=== PATIENT | male | born 1950 | race Caucasian/White ===

== ENCOUNTER → 2020-05-16 07:47 | Outpatient (CLI) | payer MEDICARE, OTHER, SELFPAY ==
[2020-04-27 10:36] VITALS: BMI 25.7
--- NOTE | 2020-05-16 07:47 | ECHOCS_ITS ---
Reason For Study: ARRHYTHMIA Procedure This was a 2D Doppler, Color Flow transthoracic echocardiogram. The study was technically difficult. Contrast injection was performed. Exam performed in department. Left Ventricle Normal LV size. Left ventricular systolic function is normal. The estimated ejection fraction is 60 %. No evidence for diastolic dysfunction. No regional wall motion abnormalities noted. Right Ventricle Normal RV size. Normal systolic function. Atria The left atrium is mildly enlarged. Normal right atrium. No doppler evidence for ASD. Mitral Valve There is no mitral annular calcification. Mild focal mitral valve calcification of the anterior leaflet. Trivial mitral valve insufficiency. Tricuspid Valve Normal tricuspid valve. Trivial tricuspid valve insufficiency. Right ventricular systolic pressure estimated to be 23 mmHg. Aortic Valve Trisinus/trileaflet aortic valve. Normal aortic valve. Mild (1+) aortic valve insufficiency. Pulmonic Valve The pulmonic valve is not well visualized. Great Vessels Normal sized aortic root. Pericardium/Pleural No pericardial effusion. Medication 22 gauge I.V. with prn adaptor inserted into right arm. Diluted definity 4.0ml given slow IV push to enhance endocardial definition. MMode/2D Measurements & Calculations LVIDd: 4.0 cm IVSd: 1.1 cm Ao root diam: 3.3 cm LVIDs: 2.7 cm LVPWd: 1.0 cm FS: 31.3 % LAV(MOD-bp): 53.1 ml LVAd ap4: 31.4 cm2 SV(MOD-sp4): 65.9 ml LAV(MOD-bp) Indexed: 25.7 ml/m2 EDV(MOD-sp4): 102.6 ml LAV(MOD-sp2): 43.2 ml EDV(sp4-el): 103.9 ml LAV(MOD-sp4): 56.9 ml LVAs ap4: 17.0 cm2 ESV(MOD-sp4): 36.7 ml ESV(sp4-el): 36.8 ml EF(MOD-sp4): 64.2 % EF(sp4-el): 64.6 % SV(sp4-el): 67.1 ml LA A4 area: 20.2 cm2 RA A4 area: 16.9 cm2 Time Measurements MV dec time: 0.45 sec Doppler Measurements & Calculations MV E max glenn: 54.2 cm/sec Lat Peak E' Glenn: 10.4 cm/sec Med Peak E' Glenn: 9.8 cm/sec MV A max glenn: 45.6 cm/sec E/E' lat: 5.2 E/E' med: 5.5 MV E/A: 1.2 Ao V2 max: 133.2 cm/sec AI max glenn: 374.3 cm/sec LV V1 max: 140.5 cm/sec Ao max P.1 mmHg AI max P.5 mmHg LV V1 max P.9 mmHg AI dec slope: 161.0 cm/sec2 AI P1/2t: 681.0 msec PA V2 max: 128.9 cm/sec PI end-d glenn: 86.9 cm/sec TR max glenn: 225.9 cm/sec TR max P.4 mmHg Interpretation Summary The study was technically difficult. Contrast injection was performed. Left ventricular systolic function is normal. The estimated ejection fraction is 60 %. The left atrium is mildly enlarged. Mild focal mitral valve calcification of the anterior leaflet. Trivial mitral valve insufficiency. Trivial tricuspid valve insufficiency. Mild (1+) aortic valve insufficiency. Right ventricular systolic pressure estimated to be 23 mmHg. No evidence for diastolic dysfunction. Ordering Physician: Terry Beard Referring Physician: LARS MARTINEZ Performed By: Sandra Dangelo, RDCS, RVT
== END ==
PROVIDERS: PCP Family Medicine; Referring Provider Internal Medicine Cardiovascular Disease; Visit Provider Internal Medicine Cardiovascular Disease
DX: R00.1 Bradycardia, unspecified (principal); R94.31 Abnormal electrocardiogram [ECG] [EKG]; I45.10 Unspecified right bundle-branch block; E78.5 Hyperlipidemia, unspecified; I10 Essential (primary) hypertension
CPT/HCPCS: 93225; 93226; 93306; Q9957; A4216; C8929